=== PATIENT | female | born 1990 | race American Indian/Alaskan Native ===

== ENCOUNTER 2018-04-03 10:45 | Emergency (ER) | payer SELFPAY ==
[2018-04-03] MEDS ORDERED: TORADOL IM ONE (11:32)
[2018-04-03 11:35] LABS: Bacteria,Urine 1+ /HPF (Negative); Bilirubin,Urine NEG (Negative); Blood,Urine LG (Negative); Color,Urine Yellow (Yellow); Mucus,Urine 1+ /HPF; Protein,Urine <15 mg/dL mg/dL (Negative); Urobilinogen,Urine < 2.0 mg/dL (<2.0)
[2018-04-03 11:36] LABS: RBC,Urine > 182.0 /HPF (0.0-6.0)
[2018-04-03 11:38] VITALS: BP 106/72
[2018-04-03 11:39] LABS: HCG Qualitative,Urine Negative (Negative)
--- NOTE | 2018-04-03 11:42 | Emergency Department Report ---
ED Abdominal Pain HPI - General Chief Complaint: Abdominal Pain Stated Complaint: VAGINAL PAIN/LEG Time Seen by Provider: 04/03/18 11:27 Source: patient Mode of arrival: Ambulatory Limitations: No Limitations - History of Present Illness Initial Comments: This is a 27-year-old female nontoxic, well nourished in appearance, no acute signs of distress presents to the ED with c/o of right flank pain that radiates to right sided abdomen and radiating to right lower leg 1 day. Patient stated it feels the same as a kidney stone. Patient denies any nausea or vomiting. Patient denies chest pain, short of breath, fever, chills, headache, stiff neck , numbness or tingling. Patient denies any diarrhea or constipation. Patient denies any recent travels. Patient denies any allergies. MD Complaint: abdominal pain, flank pain -: Last night Location: R flank Radiation: RUQ, RLQ Migration to: no migration Severity: mild Severity scale (0 -10): 3 Quality: cramping, aching Consistency: constant Improves With: nothing Worsens With: nothing Associated Symptoms: denies other symptoms. denies: nausea, vomiting, diarrhea , fever, chills, constipation, dysuria, hematemesis, hematochezia, melena, hematuria, anorexia, syncope - Related Data Previous Rx's Medication Instructions Recorded Last Taken Type Ibuprofen [Motrin] 600 mg PO Q8H PRN #30 tablet 04/03/18 Unknown Rx Ondansetron [Zofran Odt] 4 mg PO Q8HR PRN #20 tab.rapdis 04/03/18 Unknown Rx Oxycodone HCl/Acetaminophen 1 each PO Q6HR PRN #12 tablet 04/03/18 Unknown Rx [Percocet 7.5/325 mg] Sulfamethoxazole/Trimethoprim 1 each PO BID #14 tablet 04/03/18 Unknown Rx [Bactrim DS TAB] Tamsulosin [Flomax] 0.4 mg PO QDAY #5 cap 04/03/18 Unknown Rx Allergies Allergy/AdvReac Type Severity Reaction Status Date / Time No Known Allergies Allergy Unverified 04/03/18 11:00 ED Review of Systems ROS: Stated complaint: VAGINAL PAIN/LEG Other details as noted in HPI Constitutional: denies: chills, fever Eyes: denies: eye pain, eye discharge, vision change ENT: denies: ear pain, throat pain Respiratory: denies: cough, shortness of breath, wheezing Cardiovascular: denies: chest pain, palpitations Endocrine: no symptoms reported Gastrointestinal: abdominal pain. denies: nausea, diarrhea Genitourinary: denies: urgency, dysuria, discharge Musculoskeletal: back pain, arthralgia. denies: joint swelling Skin: denies: rash, lesions Neurological: denies: headache, weakness, paresthesias Psychiatric: denies: anxiety, depression Hematological/Lymphatic: denies: easy bleeding, easy bruising ED Past Medical Hx - Past Medical History Previous Medical History?: Yes Hx Kidney Stones: Yes - Surgical History Past Surgical History?: No - Social History Smoking Status: Never Smoker Substance Use Type: None - Medications Home Medications: Home Medications Medication Instructions Recorded Confirmed Last Taken Type Ibuprofen [Motrin] 600 mg PO Q8H PRN #30 tablet 04/03/18 Unknown Rx Ondansetron [Zofran Odt] 4 mg PO Q8HR PRN #20 tab.rapdis 04/03/18 Unknown Rx Oxycodone HCl/Acetaminophen 1 each PO Q6HR PRN #12 tablet 04/03/18 Unknown Rx [Percocet 7.5/325 mg] Sulfamethoxazole/Trimethoprim 1 each PO BID #14 tablet 04/03/18 Unknown Rx [Bactrim DS TAB] Tamsulosin [Flomax] 0.4 mg PO QDAY #5 cap 04/03/18 Unknown Rx ED Physical Exam - General Limitations: No Limitations General appearance: alert, in no apparent distress - Head Head exam: Present: atraumatic, normocephalic - Eye Eye exam: Present: normal appearance - ENT ENT exam: Present: normal exam, mucous membranes moist - Neck Neck exam: Present: normal inspection, full ROM. Absent: tenderness, meningismus, lymphadenopathy - Respiratory Respiratory exam: Present: normal lung sounds bilaterally. Absent: respiratory distress, wheezes, rales, rhonchi, stridor, chest wall tenderness, accessory muscle use, decreased breath sounds, prolonged expiratory - Cardiovascular Cardiovascular Exam: Present: regular rate, normal rhythm, normal heart sounds. Absent: bradycardia, tachycardia, irregular rhythm, systolic murmur, diastolic murmur, rubs, gallop - GI/Abdominal GI/Abdominal exam: Present: soft, normal bowel sounds. Absent: distended, tenderness, guarding, rebound, rigid, diminished bowel sounds, hyperactive bowel sounds, hypoactive bowel sounds, mass, bruit, pulsatile mass, hernia - Expanded GI/Abdominal Exam Expanded GI/Abdominal exam: Absent: psoas sign, Dillard's sign, Rovsing's sign, tenderness at [place]'s [place], ascites - Rectal Rectal exam: Present: deferred - Extremities Exam Extremities exam: Present: normal inspection, full ROM - Back Exam Back exam: Present: normal inspection, full ROM, paraspinal tenderness (right sided paraspinal). Absent: tenderness, CVA tenderness (R), CVA tenderness (L), muscle spasm, vertebral tenderness, rash noted - Neurological Exam Neurological exam: Present: alert, oriented X3, normal gait - Psychiatric Psychiatric exam: Present: normal affect, normal mood - Skin Skin exam: Present: warm, dry, intact, normal color. Absent: rash ED Course Vital Signs 04/03/18 04/03/18 04/03/18 11:01 11:26 11:39 Temperature 98.0 F 98.5 F Pulse Rate 74 67 Respiratory 18 18 18 Rate Blood Pressure 122/84 Blood Pressure 106/72 [Left] O2 Sat by Pulse 100 100 Oximetry 04/03/18 13:59 Temperature Pulse Rate Respiratory 19 Rate Blood Pressure Blood Pressure [Left] O2 Sat by Pulse 99 Oximetry - Reevaluation(s) Reevaluation #1: 04/03/18 11:44 Patient is speaking in full sentences with no signs of distress noted. ED Medical Decision Making - Lab Data Result diagrams: 04/03/18 11:37 04/03/18 11:37 - Medical Decision Making This is a 27-year-old female that presents with right kidney stone. Patient is stable and was examined by me. There is slight abdominal tenderness. Negative signs of symptoms of appendicitis. Labs obtained. UA obtained. CT without contrast of abdomen obtained and dictated by the radiologist. Patient is notified of the report with no questions noted by the patient. Vital signs are stable prior to discharge. Patient received Toradol, Dilaudid, Tylenol with codeine and Tylenol No. 3 in the ED which patient stated symptoms has resolved and subsided. A by mouth challenge has been obtained and patient tolerated well with no nausea vomiting. Patient stated that her family member will drive the patient home after discharge due to possible drowsiness of medication that was given in the ER. Patient was notified of strict precautions of appendicitis symptoms and to return to the ED if symptoms occurs as soon as possible. Patient was also instructed to Follow-up with a primary care doctor in 3-5 days or if symptoms worsen and continue return to emergency room as soon as possible. At time of discharge, the patient does not seem toxic or ill in appearance. No acute signs of distress noted. Patient agrees to discharge treatment plan of care. No further questions noted by the patient. Critical care attestation.: If time is entered above; I have spent that time in minutes in the direct care of this critically ill patient, excluding procedure time. ED Disposition Clinical Impression: Right kidney stone Disposition: DC-01 TO HOME OR SELFCARE Is pt being admited?: No Does the pt Need Aspirin: No Condition: Stable Instructions: Oxycodone/Acetaminophen (By mouth), Kidney Stones (ED), Abdominal Pain (ED) Additional Instructions: Follow-up with a primary care doctor in 3-5 days or if symptoms worsen and continue return to emergency room as soon as possible. Do not operate any machinery while taking Percocet as this may cause drowsiness. Prescriptions: Ibuprofen [Motrin] 600 mg PO Q8H PRN #30 tablet PRN Reason: Pain Ondansetron [Zofran Odt] 4 mg PO Q8HR PRN #20 tab.rapdis PRN Reason: Nausea Oxycodone HCl/Acetaminophen [Percocet 7.5/325 mg] 1 each PO Q6HR PRN #12 tablet PRN Reason: Pain Sulfamethoxazole/Trimethoprim [Bactrim DS TAB] 1 each PO BID #14 tablet Tamsulosin [Flomax] 0.4 mg PO QDAY #5 cap Referrals: PRIMARY CAREMD [Primary Care Provider] - 3-5 Days VALERIE PRYOR MD [Staff Physician] - 3-5 Days [facility] [Outside] - 3-5 Days [facility] [Outside] - 3-5 Days Forms: Work/School Release Form(ED)
[2018-04-03 11:50] LABS: Basophils % (Auto) 0.4 % (0.0-1.8); Eosinophils # (Auto) 0.1 K/mm3 (0.0-0.4); Hematocrit 37.2 % (30.3-42.9); Hemoglobin 12.4 gm/dl (10.1-14.3); Lymphocytes # (Auto) 1.6 K/mm3 (1.2-5.4); Lymphocytes % (Auto) 27.9 % (13.4-35.0); Mean Corpuscular HGB Conc 33 % (30-34); Mean Corpuscular Hemoglobin 31 pg (28-32); Mean Corpuscular Volume 92 fl (79-97); Monocytes # (Auto) 0.7 K/mm3 (0.0-0.8); Monocytes % (Auto) 11.6 % (0.0-7.3); Platelet Count 249 K/mm3 (140-440); Red Blood Count 4.03 M/mm3 (3.65-5.03); Red Cell Distribution Width 13.9 % (13.2-15.2)
[2018-04-03 12:12] LABS: Alanine Aminotransferase 10 units/L (7-56); Albumin 4.1 g/dL (3.9-5); BUN/Creatinine Ratio 16; Blood Urea Nitrogen 8 mg/dL (7-17); Calcium 9.2 mg/dL (8.4-10.2); Hemolysis Index 7; Lipase 21 units/L (13-60)
[2018-04-03 12:14] LABS: Bilirubin,Direct < 0.2 mg/dL (0-0.2)
[2018-04-03] MEDS ORDERED: TYLENOL #3 PO ONE (13:25)
[2018-04-03] MEDS ORDERED: MORPHINE IM ONE (13:48)
[2018-04-03] MEDS ORDERED: DILAUDID IV ONE (13:52)
[2018-04-03] MEDS ORDERED: DILAUDID IM ONE ×2 (13:56→13:58)
--- NOTE | 2018-04-03 14:35 | Cat Scan Report ---
CT ABDOMEN PELVIS WITHOUT CONTRAST: HISTORY: Right flank pain. COMPARISON: none. TECHNIQUE: Helical CT in 1.25mm intervals without IV contrast. Sagittal and coronal reconstructions. FINDINGS: Lung bases: Normal. Liver: Normal. Biliary system: Normal. Pancreas: Normal. Spleen: Normal. Kidneys/ureters/bladder: There is mild right hydronephrosis. A 4 mm calculus is identified in the right side of the pelvis which is presumably within the distal right ureter. There also 2 stones in the right kidney measuring 3 mm and 5 mm. No left nephrolithiasis. The renal pyramids are slightly hyperdense bilaterally suggesting nephrocalcinosis. The bladder is unremarkable. Adrenal glands: Normal. Aorta: Normal. Intestines: Normal. Appendix: Normal. Pelvic viscera: Normal. Ascites: None. Adenopathy: None. Musculoskeletal: Normal. IMPRESSION: Right nephrolithiasis. 4 mm distal right ureteral stone, mildly obstructing.
== END 2018-04-03 15:12 | disposition home or self-care (01) ==
LOC: ED 10:45
DX: N20.0 Calculus of kidney (principal)
CPT/HCPCS: 36415; 74176; 80048; 80074; 81001; 81025; 83690; 85025; 96372; 99284; J1170; J1885

== ENCOUNTER 2018-10-19 11:13 | Outpatient (CLI) | payer MEDICAID ==
[2018-10-19 11:45] VITALS: BP 109/72
[2018-10-19] MEDS ORDERED: LACTATED RINGERS 1,000 ML IV ONE (12:00)
[2018-10-19 12:17] LABS: Bilirubin,Urine NEG (Negative); Blood,Urine NEG (Negative); Color,Urine Yellow (Yellow); Mucus,Urine FEW /HPF; Protein,Urine <15 mg/dL mg/dL (Negative); Urobilinogen,Urine < 2.0 mg/dL (<2.0)
== END 2018-10-19 12:35 | disposition home or self-care (01) ==
LOC: TRG 11:13
PROVIDERS: ATTEND Obstetrics & Gynecology
DX: O47.02 False labor before 37 completed weeks of gestation, second trimester (principal); Z3A.25 25 weeks gestation of pregnancy
CPT/HCPCS: 81001

== ENCOUNTER 2018-11-16 09:53 | Emergency (ER) | payer MEDICAID ==
[2018-11-16 10:00] VITALS: BP 119/80
[2018-11-16] MEDS ORDERED: XYLOCAINE 2% INFILTRATI ONE (10:23)
--- NOTE | 2018-11-16 10:28 | Emergency Department Report ---
- General Chief complaint: Extremity Problem,Nontraumatic Stated complaint: 30 WKS /SWOLLEN RT MIDDLE FINGER Time Seen by Provider: 11/16/18 10:19 Source: patient Mode of arrival: Ambulatory Limitations: No Limitations - History of Present Illness Initial comments: Patient is 28 years old female presented with abscess to the tip of the right middle finger for the last 3 days. 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 Patient denied any fever or chills. Patient is 30 weeks . complaint: abscess/boil -: days(s) Tetanus Up to Date: yes Location: R hand - Related Data Previous Rx's Medication Instructions Recorded Last Taken Type Ibuprofen [Motrin] 600 mg PO Q8H PRN #30 tablet 04/03/18 Unknown Rx Ondansetron [Zofran Odt] 4 mg PO Q8HR PRN #20 tab.rapdis 04/03/18 Unknown Rx Oxycodone HCl/Acetaminophen 1 each PO Q6HR PRN #12 tablet 04/03/18 Unknown Rx [Percocet 7.5/325 mg] Sulfamethoxazole/Trimethoprim 1 each PO BID #14 tablet 04/03/18 Unknown Rx [Bactrim DS TAB] Tamsulosin [Flomax] 0.4 mg PO QDAY #5 cap 04/03/18 Unknown Rx Allergies Allergy/AdvReac Type Severity Reaction Status Date / Time No Known Allergies Allergy Unverified 04/03/18 11:00 Abscess Boil HPI - HPI Chief Complaint: Extremity Problem,Nontraumatic Stated Complaint: 30 WKS /SWOLLEN RT MIDDLE FINGER Time Seen by Provider: 11/16/18 10:19 Home Medications: Previous Rx's Medication Instructions Recorded Last Taken Type Ibuprofen [Motrin] 600 mg PO Q8H PRN #30 tablet 04/03/18 Unknown Rx Ondansetron [Zofran Odt] 4 mg PO Q8HR PRN #20 tab.rapdis 04/03/18 Unknown Rx Oxycodone HCl/Acetaminophen 1 each PO Q6HR PRN #12 tablet 04/03/18 Unknown Rx [Percocet 7.5/325 mg] Sulfamethoxazole/Trimethoprim 1 each PO BID #14 tablet 04/03/18 Unknown Rx [Bactrim DS TAB] Tamsulosin [Flomax] 0.4 mg PO QDAY #5 cap 04/03/18 Unknown Rx Allergies/Adverse Reactions: Allergies Allergy/AdvReac Type Severity Reaction Status Date / Time No Known Allergies Allergy Unverified 04/03/18 11:00 ED Review of Systems ROS: Stated complaint: 30 WKS /SWOLLEN RT MIDDLE FINGER Other details as noted in HPI Comment: All other systems reviewed and negative Constitutional: denies: chills, fever Respiratory: denies: cough, orthopnea Gastrointestinal: denies: abdominal pain Musculoskeletal: denies: back pain ED Past Medical Hx - Past Medical History Previous Medical History?: Yes Hx Hypertension: No Hx Diabetes: No Hx Deep Vein Thrombosis: No Hx Renal Disease: (hx kidney stones) Hx Sickle Cell Disease: No Hx Seizures: No Hx Kidney Stones: Yes Hx Asthma: No Hx HIV: No - Surgical History Past Surgical History?: No - Social History Smoking Status: Never Smoker Substance Use Type: None - Medications Home Medications: Home Medications Medication Instructions Recorded Confirmed Last Taken Type Ibuprofen [Motrin] 600 mg PO Q8H PRN #30 tablet 04/03/18 Unknown Rx Ondansetron [Zofran Odt] 4 mg PO Q8HR PRN #20 tab.rapdis 04/03/18 Unknown Rx Oxycodone HCl/Acetaminophen 1 each PO Q6HR PRN #12 tablet 04/03/18 Unknown Rx [Percocet 7.5/325 mg] Sulfamethoxazole/Trimethoprim 1 each PO BID #14 tablet 04/03/18 Unknown Rx [Bactrim DS TAB] Tamsulosin [Flomax] 0.4 mg PO QDAY #5 cap 04/03/18 Unknown Rx ED Physical Exam - General Limitations: No Limitations General appearance: alert, in no apparent distress - Head Head exam: Present: atraumatic - ENT ENT exam: Present: normal exam, normal orophraynx - Respiratory Respiratory exam: Present: normal lung sounds bilaterally - Cardiovascular Cardiovascular Exam: Present: regular rate, normal heart sounds - GI/Abdominal GI/Abdominal exam: Present: soft, other (gravid). Absent: distended, tenderness - Extremities Exam Extremities exam: Present: other (abscess to the tip of the middle finger.) - Neurological Exam Neurological exam: Present: alert, oriented X3, CN II-XII intact - Skin Skin exam: Present: warm ED Course Vital Signs 11/16/18 09:59 Temperature 98.7 F Pulse Rate 100 H Respiratory 16 Rate Blood Pressure 119/80 O2 Sat by Pulse 99 Oximetry - I & D Right Finger Blade Size: 11 I & D Procedure: betadine prep, sterile drapes applied, sterile dressing applied Critical care attestation.: If time is entered above; I have spent that time in minutes in the direct care of this critically ill patient, excluding procedure time. ED Disposition Clinical Impression: Abscess of finger, right Disposition: DC-01 TO HOME OR SELFCARE Is pt being admited?: No Condition: Stable Instructions: Abscess Incision and Drainage (ED) Referrals: PRIMARY CARE, [Referring] - 3-5 Days
[2018-11-16] MEDS ORDERED: TYLENOL ONE (10:55)
[2018-11-16] MEDS ORDERED: TYLENOL PO ONE (10:59)
== END 2018-11-16 10:56 | disposition home or self-care (01) ==
LOC: ED 09:53
DX: O99.713 Diseases of the skin and subcutaneous tissue complicating pregnancy, third trimester (principal); L02.511 Cutaneous abscess of right hand; Z3A.30 30 weeks gestation of pregnancy
CPT/HCPCS: 99282

== ENCOUNTER 2019-02-02 13:11 | Inpatient (IN) | payer MEDICAID ==
--- NOTE | 2019-02-02 16:13 | Ultrasound Report ---
ULTRASOUND BIOPHYSICAL PROFILE ULTRASOUND OB LIMITED INDICATION: post dates TECHNIQUE: Transabdominal ultrasound imaging. COMPARISON: None FINDINGS: breathing movement = 2 Gross body movement = 2 tone = 0 Qualitative amniotic fluid volume = 2 Total biophysical score = 6/8 Amniotic fluid index is 9.4 cm. Presentation is cephalic. heart rate is 133 beats per minute. IMPRESSION: biophysical profile equals 6/8. Signer Name: Narendra Rascon Jr, MD Signed: 02/02/2019 4:09 PM Workstation Name: [id number]
[2019-02-02] MEDS ORDERED: ZOFRAN IV PRN (16:28)
[2019-02-02] MEDS ORDERED: BRETHINE SUB-Q PRN (16:28)
[2019-02-02] MEDS ORDERED: PHENERGAN PO PRN (16:28)
[2019-02-02] MEDS ORDERED: MINERAL OIL PO PRN (16:28)
[2019-02-02] MEDS ORDERED: BRETHINE IVP PRN (16:28)
[2019-02-02] MEDS ORDERED: SUBLIMAZE IV PRN (16:28)
[2019-02-02] MEDS ORDERED: XYLOCAINE 2% INFILTRATI ONE (16:28)
--- NOTE | 2019-02-02 16:28 | History and Physical Report ---
History of Present Illness Date of examination: 02/02/19 Chief complaint: Irregular contractions History of present illness: Pt is a 28yo BF EDC 02/01/19; EGA 40 1/7 weeks presented to L&D for BPP 6/10 and DEMI 9.4 She received late care at [facility] since 31 weeks and course has been unremarkable. records are available and GBS is Negative. Past History Past Medical History: no pertinent history Past Surgical History: no surgical history Social history: no significant social history, single - Obstetrical History Expected Date of Delivery: 02/01/19 Actual Gestation: 40 Week(s) 2 Day(s) : 2 Medications and Allergies Allergies Allergy/AdvReac Type Severity Reaction Status Date / Time No Known Allergies Allergy Verified 02/02/19 13:33 Home Medications Medication Instructions Recorded Confirmed Last Taken Type Ibuprofen [Motrin] 600 mg PO Q8H PRN #30 tablet 04/03/18 Unknown Rx Ondansetron [Zofran Odt] 4 mg PO Q8HR PRN #20 tab.rapdis 04/03/18 Unknown Rx Oxycodone HCl/Acetaminophen 1 each PO Q6HR PRN #12 tablet 04/03/18 Unknown Rx [Percocet 7.5/325 mg] Sulfamethoxazole/Trimethoprim 1 each PO BID #14 tablet 04/03/18 Unknown Rx [Bactrim DS TAB] Tamsulosin [Flomax] 0.4 mg PO QDAY #5 cap 04/03/18 Unknown Rx Acetaminophen/Codeine [Tylenol 1 tab PO Q6H PRN #14 tab 11/16/18 Unknown Rx /Codeine # 3 tab] cephALEXin [Keflex] 500 mg PO Q8HR #28 cap 11/16/18 Unknown Rx Review of Systems All systems: negative - Vital Signs Vital signs: Vital Signs Temp Pulse Resp BP 97.7 F 90 20 117/84 02/02/19 13:55 02/02/19 13:55 02/02/19 13:55 02/02/19 13:55 Temp Pulse Resp BP Pulse Ox 97.7 F 82 20 115/83 02/02/19 13:55 02/02/19 15:49 02/02/19 13:55 02/02/19 15:49 - Physical Exam Breasts: Positive: deferred Cardiovascular: Regular rate Lungs: Positive: Clear to auscultation Abdomen: Positive: normal appearance Genitourinary (Female): Positive: normal external genitalia Uterus: Positive: enlarged Extremities: Positive: normal - Obstetrical FHR: category 1 Uterine Contraction Monitor Mode: External Cervical Dilatation: 2 Cervical Effacement Percentage: 60 station: -2 Uterine Contraction Pattern: Irregular Uterine Tone Measurement Phase: Contraction Uterine Contraction Intensity: Mild Results Result Diagrams: 02/02/19 17:02 All other labs normal. Ultrasound: report reviewed (BPP 6/8; DEMI 9.4) Assessment and Plan - Patient Problems (1) 40 weeks gestation of Onset Date: 02/02/19 Current Visit: Yes Status: Acute Plan to address problem: A: IUP @ 40 1/7 weeks BPP 6/8 GBS Negative P: Admit to L&D for pitocin induction of labor
[2019-02-02] MEDS ORDERED: PITOCin/NS 20 UNIT/1000ML DRIP 20 UNITS/1,000 ML BAG IV SCH (17:00)
[2019-02-02] MEDS ORDERED: PITOCin/NS 30 UNIT/500ML 30 UNITS/500 ML BAG IV SCH ×2 (17:00)
[2019-02-02] MEDS ORDERED: LACTATED RINGERS 1,000 ML IV SCH (17:00)
[2019-02-02 17:29] LABS: Hematocrit 39.8 % (30.3-42.9); Hemoglobin 13.4 gm/dl (10.1-14.3); Mean Corpuscular HGB Conc 34 % (30-34); Mean Corpuscular Volume 90 fl (79-97); Platelet Count 203 K/mm3 (140-440); Red Blood Count 4.42 M/mm3 (3.65-5.03); Red Cell Distribution Width 13.6 % (13.2-15.2)
[2019-02-03] MEDS: STADOL IV PRN ×3 (00:55→07:40)
--- NOTE | 2019-02-03 08:46 | Progress Note ---
Assessment and Plan - Patient Problems (1) 40 weeks gestation of Onset Date: 02/02/19 Current Visit: Yes Status: Acute Plan to address problem: A: IUP @ 40 2/7 weeks BPP 6/8 GBS Negative P: Continue with pitocin induction of labor May have epidural Expectant vaginal delivery. Subjective - Subjective Date of service: 02/03/19 Principal diagnosis: IUP @ 40 2/7 weeks Interval history: Pt is a 28yo BF EDC 02/01/19; EGA 40 2/7 weeks presented to L&D for BPP 6/10 and DEMI 9.4 She received late care at [facility] since 31 weeks and course has been unremarkable. She received pitocin and currently on 20mu/min and [place] q 2-4 mins. Patient reports: movement normal, contractions, no new complaints, no loss of fluid, no vaginal bleeding Objective - Vital Signs Vital Signs: Vital Signs - 12hr 02/02/19 02/02/19 02/02/19 21:34 22:34 23:36 Temperature Pulse Rate 86 74 68 Respiratory Rate Blood Pressure 132/89 130/83 125/78 02/03/19 02/03/19 02/03/19 00:35 01:35 02:36 Temperature Pulse Rate 82 70 63 Respiratory Rate Blood Pressure 119/86 121/61 125/67 02/03/19 02/03/19 02/03/19 03:26 03:42 04:35 Temperature 97.8 F Pulse Rate 71 66 Respiratory 16 Rate Blood Pressure 120/80 102/69 02/03/19 02/03/19 02/03/19 05:34 06:34 07:44 Temperature Pulse Rate 76 73 81 Respiratory Rate Blood Pressure 119/73 107/66 141/95 02/03/19 02/03/19 07:50 08:35 Temperature 97.5 F L Pulse Rate 68 Respiratory Rate Blood Pressure 141/81 - Exam Abdomen: Present: normal appearance, soft Uterus: Present: normal FHR: category 1 Uterine Contraction Monitor Mode: External Cervical Dilatation: 4 Cervical Effacement Percentage: 100 station: -1 Uterine Contraction Pattern: Regular Uterine Tone Measurement Phase: Contraction Uterine Contraction Intensity: Strong/Firm - Labs Labs: Laboratory Results - last 24 hr 02/02/19 02/02/19 17:02 Unknown WBC 8.3 RBC 4.42 Hgb 13.4 Hct 39.8 MCV 90 MCH 30 MCHC 34 RDW 13.6 Plt Count 203 Blood Type A POSITIVE Antibody Screen Negative
--- NOTE | 2019-02-03 10:38 | Procedure Note ---
OB Delivery Note - Delivery Date of Delivery: 02/03/19 Surgeon: JERARDO GILMAN Estimated blood loss: 200cc - Vaginal Delivery presentation: vertex Delivery position: OA Intrapartum events: none Delivery induction: oxytocin Delivery augmentation: rupture of membranes, pitocin Delivery monitor: external FHT, external uterine Route of delivery: Delivery placenta: spontaneous Delivery cord: 3 umbilical vessels Episiotomy: none Delivery laceration: none Anesthesia: intravenous Delivery comments: delivered OA and placed on Mom's chest for [id number] bonding and delayed cord clamping. - A at 1 minute: 8 at 5 minutes: 9 Infant Gender: Male ([id number])
[2019-02-03] MEDS ORDERED: DULCOLAX PR PRN (10:39)
[2019-02-03] MEDS ORDERED: LANSINOH TP PRN (10:39)
[2019-02-03] MEDS ORDERED: ZOFRAN IV PRN (10:39)
[2019-02-03] MEDS ORDERED: MILK OF MAGNESIA PO PRN (10:39)
[2019-02-03] MEDS ORDERED: TYLENOL PO PRN (10:39)
[2019-02-03] MEDS ORDERED: PHENERGAN PR PRN (10:39)
[2019-02-03] MEDS ORDERED: PHENERGAN PO PRN (10:39)
[2019-02-03] MEDS ORDERED: BENADRYL PO PRN (10:39)
[2019-02-03] MEDS ORDERED: TUCKS PAD TP PRN (10:39)
[2019-02-03] MEDS ORDERED: PITOCin/NS 20 UNIT/1000ML DRIP 20 UNITS/1,000 ML BAG IV SCH (11:00)
[2019-02-03] MEDS ORDERED: SODIUM CHLORIDE FLUSH SYRINGE 10 ML IV NR (11:00)
[2019-02-03] MEDS: NORCO 5/325 PO PRN ×2 (12:09→21:19)
[2019-02-03] MEDS: IBUPROFEN PO SCH ×2 (12:11→18:18)
[2019-02-03] MEDS: COLACE PO SCH (21:19)
[2019-02-03] MEDS: FEOSOL PO SCH (21:19)
[2019-02-03 21:34] LABS: Hematocrit 33.3 % (30.3-42.9); Hemoglobin 11.1 gm/dl (10.1-14.3)
[2019-02-04] MEDS: IBUPROFEN PO SCH ×5 (00:37→22:26)
[2019-02-04] MEDS: NORCO 5/325 PO PRN ×3 (05:55→20:30)
--- NOTE | 2019-02-04 09:04 | Progress Note ---
Assessment and Plan - Patient Problems (1) 40 weeks gestation of Onset Date: 02/02/19 Current Visit: Yes Status: Resolved (2) (normal spontaneous vaginal delivery) Onset Date: 02/04/19 Current Visit: Yes Status: Resolved Plan to address problem: A: S/P - PPD #1 Doing well Asymptomatic anemia - stable P: May go home tomorrow. Subjective - Subjective Date of service: 02/04/19 Principal diagnosis: s/p - PPD #1 Interval history: Pt is feeling well without complaints. Bleeding improved. Patient reports: appetite normal, voiding normally, pain well controlled, flatus, ambulating normally, no dizzy ambulation, no nauseated [place]: doing well, nursing well, bottle feeding Objective - Vital Signs Latest vital signs: Vital Signs Temp Pulse Resp BP BP Pulse Ox 02/03/19 23:54 98.6 F 87 20 126/87 99 02/03/19 19:28 98.2 F 86 20 135/85 99 02/03/19 16:26 98.2 F 86 18 116/80 02/03/19 13:00 98.2 F 72 20 121/71 02/03/19 12:34 86 128/75 02/03/19 12:00 75 152/83 02/03/19 11:46 74 120/78 02/03/19 10:42 80 133/66 Intake and Output 02/03/19 02/04/19 02/04/19 22:59 06:59 14:59 Intake Total 480 360 Output Total 1400 Balance -920 360 Intake: Oral 480 360 Output: Urine 1400 Void 1400 Other: Total, Intake Amount 480 120 Total, Output Amount 400 # Voids Void 1 1 - Exam Breasts: Present: deferred Abdomen: Present: normal appearance, soft Uterus: Present: normal, firm, fundal height below umbilicus Extremities: Present: normal - Labs Labs: Laboratory Tests 02/02/19 02/02/19 02/02/19 17:02 17:02 Unknown WBC 8.3 RBC 4.42 Hgb 13.4 Hct 39.8 MCV 90 MCH 30 MCHC 34 RDW 13.6 Plt Count 203 RPR Nonreactive Blood Type A POSITIVE Antibody Screen Negative 02/03/19 21:08 WBC RBC Hgb 11.1 Hct 33.3 D MCV MCH MCHC RDW Plt Count RPR Blood Type Antibody Screen
[2019-02-04] MEDS: FEOSOL PO SCH ×2 (10:26→21:38)
[2019-02-04] MEDS: COLACE PO SCH ×2 (10:26→21:38)
[2019-02-04] MEDS: PRENATAL VITAMIN PO SCH (10:26)
[2019-02-04] MEDS ORDERED: M-M-R II VACCINE SUB-Q ONE (10:39)
[2019-02-04] MEDS ORDERED: BOOSTRIX IM ONE (10:39)
[2019-02-05] MEDS: NORCO 5/325 PO PRN ×2 (02:55→10:44)
[2019-02-05] MEDS: IBUPROFEN PO SCH (04:55)
--- NOTE | 2019-02-05 08:56 | Discharge Summary ---
Providers - Providers Date of Admission: 02/02/19 16:40 Date of discharge: 02/05/19 Attending physician: JERARDO GILMAN [facility] Hospitalization Reason for admission: induction of labor, IUP at term Delivery: Episiotomy: none Laceration: none Other procedures: none complications: none Discharge diagnosis: IUP at term delivered [place] baby: male Hospital course: Unremarkable. Condition at discharge: Good Disposition: DC-01 TO HOME OR SELFCARE - Discharge Diagnoses (1) 40 weeks gestation of Status: Resolved (2) (normal spontaneous vaginal delivery) Status: Resolved Plan - Discharge Medications Prescriptions: Ferrous Sulfate [Feosol 325 MG tab] 325 mg PO QDAY #30 tablet Ibuprofen [Motrin 600 MG tab] 600 mg PO Q6H #30 tablet Vit-Fe Fumar-FA [ Vitamin] 1 each PO QDAY #30 tablet - Provider Discharge Summary Activity: routine, no sex for 6 weeks, no heavy lifting 4 weeks, no strenuous exercise Diet: routine Instructions: routine Additional instructions: [] Smoking cessation referral if applicable(refer to patient education folder for contact #) [] Refer to [facility]'s [facility] Booklet Call your doctor immediately for: * Fever > 100.5 * Heavy vaginal bleeding ( >1 pad per hour) * Severe persistent headache * Shortness of breath * Reddened, hot, painful area to leg or breast * Drainage or odor from incision. * Keep incision clean and dry at all times and follow doctor's instructions regarding bathing/showering - Follow up plan Follow up: GREGORY TRISTAN MD [Primary Care Provider] - 6 Weeks JERARDO GILMAN MD [Staff Physician] - 6 Weeks
[2019-02-05] MEDS: COLACE PO SCH (10:43)
[2019-02-05] MEDS: PRENATAL VITAMIN PO SCH (10:43)
[2019-02-05] MEDS: FEOSOL PO SCH (10:43)
[2019-02-05 15:20] VITALS: BP 123/81
== END 2019-02-05 16:10 | disposition home or self-care (01) | DRG 775 ==
LOC: TRG 13:11 → LD 16:40 → OB 02-03 12:53
PROVIDERS: ADMIT Obstetrics & Gynecology; ATTEND Obstetrics & Gynecology
PROC: 3E033VJ Introduction of Other Hormone into Peripheral Vein, Percutaneous Approach (ICD-10-PCS; 2019-02-02)
PROC: 10E0XZZ Delivery of Products of Conception, External Approach (ICD-10-PCS; principal; 2019-02-03)
PROC: 3E0234Z Introduction of Serum, Toxoid and Vaccine into Muscle, Percutaneous Approach (ICD-10-PCS; 2019-02-04)
DX: O90.81 Anemia of the puerperium (principal); Z3A.40 40 weeks gestation of pregnancy; Z37.0 Single live birth; Z23 Encounter for immunization
CPT/HCPCS: 36415; 76815; 76819; 85014; 85018; 85027; 86592; 86850; 86900; 86901; G0378; J0595; J2590; J3010; J7120

== ENCOUNTER 2020-11-25 14:57 | Emergency (ER) | payer SELFPAY ==
[2020-11-25 16:32] VITALS: BP 129/82
--- NOTE | 2020-11-25 16:45 | Event Note ---
ED Screening Note Date of service: 11/25/20 Time: 16:44 ED Screening Note: Patient complains of lower abdominal pain and hematochezia today States has not had a cycle in 3 months Denies urinary symptoms This initial assessment/diagnostic orders/clinical plan/treatment(s) is/are subject to change based on patients health status, clinical progression and re- assessment by fellow clinical providers in the ED. Further treatment and workup at subsequent clinical providers discretion. Patient/guardian urged not to elope from the ED as their condition may be serious if not clinically assessed and managed. Initial orders include: Labs
[2020-11-25 17:09] LABS: Basophils % (Auto) 0.5 % (0.0-1.8); Eosinophils # (Auto) 0.4 K/mm3 (0.0-0.4); Eosinophils % (Auto) 4.6 % (0.0-4.3); Hematocrit 34.1 % (30.3-42.9); Hemoglobin 11.8 gm/dl (10.1-14.3); Lymphocytes # (Auto) 1.7 K/mm3 (1.2-5.4); Lymphocytes % (Auto) 19.7 % (13.4-35.0); Mean Corpuscular HGB Conc 35 % (30-34); Mean Corpuscular Volume 93 fl (79-97); Monocytes # (Auto) 0.6 K/mm3 (0.0-0.8); Monocytes % (Auto) 7.2 % (0.0-7.3); Platelet Count 243 K/mm3 (140-440); Red Blood Count 3.68 M/mm3 (3.65-5.03); Red Cell Distribution Width 13.7 % (13.2-15.2)
[2020-11-25 17:33] LABS: Alanine Aminotransferase 12 units/L (7-56); Albumin 3.8 g/dL (3.9-5); Blood Urea Nitrogen 7 mg/dL (7-17); Calcium 9.1 mg/dL (8.4-10.2); Hemolysis Index 1
[2020-11-25 17:39] LABS: BUN/Creatinine Ratio 18
[2020-11-25] MEDS ORDERED: ACETAMINOPHEN 500 MG TAB PO ONE (19:35)
[2020-11-25 20:54] LABS: Bacteria,Urine 2+ /HPF (Negative); Bilirubin,Urine NEG (Negative); Blood,Urine NEG (Negative); Color,Urine Yellow (Yellow); Mucus,Urine 3+ /HPF; Protein,Urine <15 mg/dL mg/dL (Negative); Urobilinogen,Urine < 2.0 mg/dL (<2.0)
--- NOTE | 2020-11-25 22:08 | Ultrasound Report ---
ULTRASOUND OBSTETRIC INDICATION / CLINICAL INFORMATION: Lower abdominal pain. Clinical Gestational Age (GA): 13 weeks 4 days TECHNIQUE: Transabdominal. COMPARISON: None available. FINDINGS: There is a single intrauterine . Biparietal Diameter = 4.1 cm = 18 weeks, 3 day(s). Head Circumference = 15.6 cm = 18 weeks, 3 day(s). Abdominal Circumference = 12.8 cm = 18 weeks, 2 day(s). Femur Length = 2.8 cm = 18 weeks, 2 day(s). Average Ultrasound Age (AUA) = 18 weeks, 3 day(s). Heart Rate: 150 beats per minute. Estimated Weight in grams (if calculated): 239 Estimated Weight Growth Percentile (if calculated): Position: transverse head maternal left Cervix: closed. Length in cm (if measured): 4.2 Placenta: posterior, grade 1 and free of the os. Amniotic Fluid Volume: normal Amniotic Fluid Index (DEMI) in cm (if calculated): . Maternal Adnexa: No significant abnormality. IMPRESSION: 1. Single, living intrauterine with estimated sonographic age of 18 weeks, 3 day(s). 2. No significant sonographic abnormality. Signer Name: Fabrizio Roger MD Signed: 11/25/2020 10:04 PM Workstation Name: [id number]
== END 2020-11-25 22:00 | disposition home or self-care (01) ==
LOC: ED 14:57
DX: R10.9 Unspecified abdominal pain (principal)
CPT/HCPCS: 36415; 76805; 80053; 81001; 83690; 84702; 85025

== ENCOUNTER 2021-03-27 12:27 | Outpatient (CLI) | payer MEDICAID ==
[2021-03-27 13:25] VITALS: BP 111/77
[2021-03-27] MEDS ORDERED: LACTATED RINGERS 500 ML IV ONE (13:44)
[2021-03-27 14:34] LABS: Bacteria,Urine 1+ /HPF (Negative); Bilirubin,Urine NEG (Negative); Blood,Urine NEG (Negative); Color,Urine Amber (Yellow); Mucus,Urine 1+ /HPF
== END 2021-03-27 14:35 | disposition home or self-care (01) ==
LOC: TRG 12:27 → APU 12:44 → TRG 14:35
PROVIDERS: ATTEND Obstetrics & Gynecology
DX: Z34.93 Encounter for supervision of normal pregnancy, unspecified, third trimester (principal); Z3A.36 36 weeks gestation of pregnancy
CPT/HCPCS: 59025; 81001; 87076; 87086; 87186

== ENCOUNTER 2021-03-27 14:45 | Emergency (ER) | payer MEDICAID ==
--- NOTE | 2021-03-27 15:50 | Event Note ---
ED Screening Note Date of service: 03/27/21 Time: 15:47 ED Screening Note: 30-year-old -[place] female who presents to the emergency room at 36 weeks and 1 day for having shortness of breath and chest tingling and difficulty breathing x2 days. Patient states that she tested positive for Covid 7 or 8 days ago. Patient admits that she is unvaccinated. Patient is 3 para 2 and is followed by [facility]. Patient admits to diarrhea and no appetite and no lower leg swelling. Patient denies any past medical history and no complications with either pregnancies. Patient has stable vital signs for blood pressure 126/82 heart rate 106 pulse ox 97% on room air and temp of 98.4. Patient is coughing during examination. Lungs are clear. No abdominal tenderness no lower leg swelling. This initial assessment/diagnostic orders/clinical plan/treatment(s) is/are subject to change based on patients health status, clinical progression and re- assessment by fellow clinical providers in the ED. Further treatment and workup at subsequent clinical providers discretion. Patient/guardian urged not to elope from the ED as their condition may be serious if not clinically assessed and managed. Initial orders include: CBC CMP EKG PT PTT and ambulatory pulse ox has been ordered.
[2021-03-27] MEDS ORDERED: ACETAMINOPHEN 325 MG TAB PO STA (16:38)
--- NOTE | 2021-03-27 16:39 | Emergency Department Report ---
ED General Adult HPI - General Chief complaint: Dyspnea/Respdistress Stated complaint: CP/SOB PUI?: Yes Time Seen by Provider: 03/27/21 15:39 Source: patient, old records reviewed Mode of arrival: Ambulatory Limitations: No Limitations - History of Present Illness Initial comments: The patient was evaluated in the emergency department for symptoms described in the history of present illness. He/she was evaluated in the context of the global COVID-19 pandemic, which necessitated consideration that the patient might be at risk for infection with the virus that causes COVID-19. Institutional protocols and algorithms that pertain to the evaluation of patients at risk for COVID-19 are in a state of rapid change based on inf ormation released by regulatory bodies including the CDC and federal and state organizations. These policies and algorithms were followed during the patient's care in the emergency department. Please note that these policies, procedures and recommendations changed on a rapid basis. During the entire history and physical examination, I had on complete personal protective equipment. The patient is a 30-year-old female. She is positive for COVID-19 for approximately 1 week. She is also approximately 36 weeks , and 3, para 2. She was sent to the emergency room by labor and delivery for medical clearance. The patient complains of approximately 1 week of chest tightness, cough, shortness of breath. She has loss of taste and smell. She has headache. She reports that she went to labor and delivery because of abdominal cramping. She states that she was cleared from an obstetric standpoint by labor and delivery. She denies dysuria. She denies hematemesis and bright red blood per rectum. She denies leg pain or leg swelling. Her symptoms were somewhat improved with acetaminophen in the emergency room. She currently does not smoke tobacco or cigarettes. She denies a personal/family history of DVT, PE and coronary artery disease. The patient reports that she has not received COVID-19 vaccination -: Gradual, days(s) Location: chest Radiation: non-radiation Consistency: intermittent Improves with: rest Worsens with: movement - Related Data Previous Rx's Medication Instructions Recorded Last Taken Type Ibuprofen [Motrin] 600 mg PO Q8H PRN #30 tablet 04/03/18 Unknown Rx Ondansetron [Zofran Odt] 4 mg PO Q8HR PRN #20 tab.rapdis 04/03/18 Unknown Rx Oxycodone HCl/Acetaminophen 1 each PO Q6HR PRN #12 tablet 04/03/18 Unknown Rx [Percocet 7.5/325 mg] Sulfamethoxazole/Trimethoprim 1 each PO BID #14 tablet 04/03/18 Unknown Rx [Bactrim DS TAB] Tamsulosin [Flomax] 0.4 mg PO QDAY #5 cap 04/03/18 Unknown Rx Acetaminophen/Codeine [Tylenol 1 tab PO Q6H PRN #14 tab 11/16/18 Unknown Rx /Codeine # 3 tab] cephALEXin [Keflex] 500 mg PO Q8HR #28 cap 11/16/18 Unknown Rx Ferrous Sulfate [Feosol 325 MG tab] 325 mg PO QDAY #30 tablet 02/05/19 Unknown Rx Ibuprofen [Motrin 600 MG tab] 600 mg PO Q6H #30 tablet 02/05/19 Unknown Rx Vit-Fe Fumar-FA [ 1 each PO QDAY #30 tablet 02/05/19 Unknown Rx Vitamin] Albuterol Sulfate [Proair 90 mcg IH 4XD #1 aer.pow.ba 03/27/21 Unknown Rx Respiclick] Allergies Allergy/AdvReac Type Severity Reaction Status Date / Time No Known Allergies Allergy Verified 02/02/19 13:33 ED Review of Systems ROS: Stated complaint: CP/SOB Other details as noted in HPI Constitutional: malaise, weakness. denies: fever Eyes: denies: eye discharge ENT: denies: epistaxis Respiratory: cough, shortness of breath Cardiovascular: chest pain Gastrointestinal: denies: nausea, vomiting, diarrhea, hematemesis, melena, hematochezia Genitourinary: denies: dysuria Musculoskeletal: myalgia Neurological: headache, weakness Hematological/Lymphatic: denies: easy bleeding ED Past Medical Hx - Past Medical History Hx Hypertension: No Hx Diabetes: No Hx Deep Vein Thrombosis: No Hx Renal Disease: No Hx Sickle Cell Disease: No Hx Seizures: No Hx Kidney Stones: Yes Hx Asthma: No Hx HIV: No - Social History Smoking Status: Never Smoker Substance Use Type: None - Medications Home Medications: Home Medications Medication Instructions Recorded Confirmed Last Taken Type Ibuprofen [Motrin] 600 mg PO Q8H PRN #30 tablet 04/03/18 02/04/19 Unknown Rx Ondansetron [Zofran Odt] 4 mg PO Q8HR PRN #20 tab.rapdis 04/03/18 02/04/19 Unknown Rx Oxycodone HCl/Acetaminophen 1 each PO Q6HR PRN #12 tablet 04/03/18 02/04/19 Unknown Rx [Percocet 7.5/325 mg] Sulfamethoxazole/Trimethoprim 1 each PO BID #14 tablet 04/03/18 02/04/19 Unknown Rx [Bactrim DS TAB] Tamsulosin [Flomax] 0.4 mg PO QDAY #5 cap 04/03/18 02/04/19 Unknown Rx Acetaminophen/Codeine [Tylenol 1 tab PO Q6H PRN #14 tab 11/16/18 02/04/19 Unknown Rx /Codeine # 3 tab] cephALEXin [Keflex] 500 mg PO Q8HR #28 cap 11/16/18 Unknown Rx Ferrous Sulfate [Feosol 325 MG tab] 325 mg PO QDAY #30 tablet 02/05/19 Unknown Rx Ibuprofen [Motrin 600 MG tab] 600 mg PO Q6H #30 tablet 02/05/19 Unknown Rx Vit-Fe Fumar-FA [ 1 each PO QDAY #30 tablet 02/05/19 Unknown Rx Vitamin] Albuterol Sulfate [Proair 90 mcg IH 4XD #1 aer.pow.ba 03/27/21 Unknown Rx Respiclick] ED Physical Exam - General Limitations: No Limitations General appearance: alert, in no apparent distress - Head Head exam: Present: atraumatic, normocephalic - Eye Eye exam: Present: normal appearance, EOMI. Absent: nystagmus - ENT ENT exam: Present: normal exam, normal orophraynx, mucous membranes moist, nor mal external ear exam - Neck Neck exam: Present: normal inspection, full ROM. Absent: tenderness, meningismus - Respiratory Respiratory exam: Present: other (Pulmonary auscultation not performed secondary to lack of disposable stethoscope). Absent: respiratory distress, stridor - Cardiovascular Cardiovascular Exam: Present: regular rate (Seen on EKG), normal rhythm, other (Cardiac auscultation not performed secondary to lack of disposable stethoscope) - GI/Abdominal GI/Abdominal exam: Present: soft, other (Uterus is consistent with dates. Abdomen soft and benign, and nontender). Absent: distended, tenderness, rebound, rigid, pulsatile mass - Extremities Exam Extremities exam: Present: normal inspection, full ROM, other (2+ pulses noted in the bilateral upper and lower extremities. There is no palpable cord. negative Homans sign. Muscular compartments are soft. The pelvis is stable.). Absent: pedal edema, calf tenderness - Back Exam Back exam: Present: normal inspection. Absent: full ROM, tenderness, CVA tenderness (R), CVA tenderness (L), paraspinal tenderness, vertebral tenderness - Neurological Exam Neurological exam: Present: alert, oriented X3, normal gait, other (No facial droop. Tongue midline. Extraocular movements intact bilaterally. Facial sensation intact to light touch in V1, V2, V3 distribution bilaterally. 5 and a 5 strength in 4 extremities. Sensation intact to light touch in 4 extremities.). Absent: motor sensory deficit - Psychiatric Psychiatric exam: Present: normal affect, normal mood - Skin Skin exam: Present: warm, dry, intact, normal color. Absent: rash ED Course Vital Signs 03/27/21 03/27/21 03/27/21 15:26 15:46 15:54 Temperature 98.4 F 98.4 F Pulse Rate 99 H 106 H Respiratory 22 16 Rate Blood Pressure 126/82 O2 Sat by Pulse 97 97 97 Oximetry 03/27/21 03/27/21 19:33 23:40 Temperature 98.2 F Pulse Rate 101 H 97 H Respiratory 13 17 Rate Blood Pressure 110/78 O2 Sat by Pulse 99 98 Oximetry - Reevaluation(s) Reevaluation #1: 03/27/21 19:29 Differential diagnosis, including but not limited to: COVID-19, pulmonary embolism, pneumonia, coronary artery disease Assessment and plan: 30-year-old female who is Covid positive for 1 week, and also approximately 36 weeks , Presenting with a few days of chest tightness, shortness of breath. This is most likely secondary to COVID-19. At the moment, she is saturating well on room air. Heart score is less than 4, troponin negative x1, EKG not consistent with STEMI. As per the [employer] clinical policy, acute myocardial infarction may be ruled out with 1 set of troponin/cardiac enzymes if symptoms present for greater than 8 hours. COVID-19 [address] patient at risk for pulmonary embolism. D- dimer sent and elevated, and therefore, CT scan of the chest will be obtained. Extensive discussion had with patient regarding risks, benefits and alternatives of objective radiographic imaging. Patient has signed informed consent for definitive CT angiographic imaging to rule her out/rule in for pulmonary embolism. From an obstetric standpoint, she was cleared earlier on today by TELEVISION INSPECTOR as per her report. Her abdomen is soft and benign, without rebound, guarding or peritoneal signs. CO2 is likely secondary to physiology of , as well as probable physiologic tachypnea, likely secondary to underlying COVID-19. Repeat vital signs pending, final disposition as per CT scan of the chest. care will be transferred to the oncoming ER physician to follow up on cta chest, repeat vital signs and arrange for final disposition Patient was able to ambulate on a portable pulse oximeter on room air for 5 minutes without desaturation. Given that she does not have hypoxia with ambulation, she does not require admission for supplemental oxygen, steroids, or supportive Covid care. During multiple repeat evaluations, the patient is noted to be resting comfortably on chair, engaged/playing with her cellular phone. 03/27/21 19:29 03/27/21 19:32 ED Medical Decision Making - Lab Data Result diagrams: 03/27/21 16:32 03/27/21 16:32 Vital Signs 03/27/21 03/27/21 15:46 15:54 Temperature 98.4 F Pulse Rate 106 H Respiratory 16 Rate O2 Sat by Pulse 97 97 Oximetry Lab Results 03/27/21 03/27/21 03/27/21 Range/Units 16:32 16:32 16:32 WBC 5.1 (4.5-11.0) K/mm3 RBC 4.18 (3.65-5.03) M/mm3 Hgb 12.3 (10.1-14.3) gm/dl Hct 36.8 (30.3-42.9) % MCV 88 (79-97) fl MCH 30 (28-32) pg MCHC 34 (30-34) % RDW 13.7 (13.2-15.2) % Plt Count 192 (140-440) K/mm3 Lymph % (Auto) 24.1 (13.4-35.0) % [place] % (Auto) 8.9 H (0.0-7.3) % Eos % (Auto) 0.0 (0.0-4.3) % Baso % (Auto) 0.3 (0.0-1.8) % Lymph # (Auto) 1.2 (1.2-5.4) K/mm3 [place] # (Auto) 0.5 (0.0-0.8) K/mm3 Eos # (Auto) 0.0 (0.0-0.4) K/mm3 Baso # (Auto) 0.0 (0.0-0.1) K/mm3 Seg Neutrophils % 66.7 (40.0-70.0) % Seg Neutrophils # 3.4 (1.8-7.7) K/mm3 PT 12.2 (12.2-14.9) Sec. INR 0.86 L (0.87-1.13) APTT 33.5 (24.2-36.6) Sec. D-Dimer 676.26 H (0-234) ng/mlDDU Sodium 139 (137-145) mmol/L Potassium 4.0 (3.6-5.0) mmol/L Chloride 107.8 H (98-107) mmol/L Carbon Dioxide 15 L (22-30) mmol/L Anion Gap 20 mmol/L BUN 6 L (7-17) mg/dL Creatinine 0.5 L (0.6-1.2) mg/dL Estimated GFR > 60 ml/min BUN/Creatinine Ratio 12 % Glucose 74 (65-100) mg/dL Calcium 8.6 (8.4-10.2) mg/dL Troponin T < 0.010 (0.00-0.029) ng/mL - EKG Data -: EKG Interpreted by Dc EKG shows normal: sinus rhythm Rate: normal - EKG Data When compared to previous EKG there are: previous EKG unavailable 03/27/21 19:28 The EKG is interpreted at 16: 09 Sinus rhythm, 98 bpm. Normal axis, QTC 444 ms. Poor R wave progression. Borderline high left ventricular voltage. Q waves lead I and aVL. Abnormal EKG. Not a STEMI. No prior for comparison. - Radiology Data Radiology results: pending, report reviewed, image reviewed [facility] [address] [place] [address] Cat Scan Report Signed Patient: JIE JAIN MR#: [id number] : 1990 Acct:[id number] Age/Sex: 30 / F ADM Date: 03/27/21 Loc: ED Attending Dr: Ordering Physician: LONDON CALLEJAS MD Date of Service: 03/27/21 Procedure(s): CT angio chest Accession Number(s): [id number] cc: LONDON CALLEJAS MD CTA CHEST WITH CONTRAST INDICATION / CLINICAL INFORMATION: Acute dyspnea / S.O.B.. TECHNIQUE: Axial CT images were obtained through the chest after injection of 100 cc of Omnipaque 350 IV contrast. 3 plane MIP and/or 3D re constructions were produced. All CT scans at this location are performed using CT dose reduction for ALARA by means of automated exposure control. COMPARISON: None available. FINDINGS: PULMONARY ARTERIES: Evaluation for subsegmental pulmonary emboli is limited due to respiratory motion artifact. No central or segmental pulmonary embolus. THORACIC AORTA: No significant abnormality. HEART: No significant abnormality. ADENOPATHY: No significant adenopathy. LUNGS/PLEURA: Multifocal patchy airspace consolidation throughout bilateral lungs. No pleural effusion. No pneumothorax. ADDITIONAL FINDINGS: None. UPPER ABDOMEN: No acute findings. SKELETAL STRUCTURES: No significant osseous abnormality. IMPRESSION: 1. No evidence for central or segmental pulmonary embolism. 2. Multifocal patchy airspace consolidation, in keeping with reported history of COVID. Signer Name: Devin Landrum MD Signed: 03/27/2021 10:33 PM Workstation Name: [id number] Transcribed By: BRIAN Dictated By: DEVIN LANDRUM MD Electronically Authenticated By: DEVIN LANDRUM MD Signed Date/Time: 03/27/212232 DD/ 29 Critical care attestation.: If time is entered above; I have spent that time in minutes in the direct care of this critically ill patient, excluding procedure time. ED Disposition Clinical Impression: , COVID-19, Chest pain, Shortness of breath, COVID-19 vaccination not done Disposition: 01 HOME / SELF CARE / HOMELESS Is pt being admited?: No Does the pt Need Aspirin: No Condition: Stable Instructions: Nonspecific Chest Pain, Adult Additional Instructions: Drink plenty water. Return for problems. Continue home medication. Follow-up with your regular doctor for recheck and further management. Prescriptions: Albuterol Sulfate [Proair Respiclick] 90 mcg IH 4XD #1 diana Referrals: PRIMARY CARE, [Primary Care Provider] - 3-5 Days Forms: Accompanied Note, Work/School Release Form(ED) Heart Score - HEART Score History: Slightly suspicious EKG: Non-specific Age: < 45 Risk factors: 1-2 risk factors Troponin: < normal limit HEART Score: 2 - EKG Read Time Time EKG Completed: 16:09 EKG Read Time: 16:09 - Critical Actions Critical Actions: 0-3 pts:0.9-1.7%risk of adverse cardiac event.Candidate for discharge
[2021-03-27 16:55] LABS: Basophils % (Auto) 0.3 % (0.0-1.8); Hematocrit 36.8 % (30.3-42.9); Hemoglobin 12.3 gm/dl (10.1-14.3); Lymphocytes # (Auto) 1.2 K/mm3 (1.2-5.4); Lymphocytes % (Auto) 24.1 % (13.4-35.0); Mean Corpuscular HGB Conc 34 % (30-34); Mean Corpuscular Volume 88 fl (79-97); Monocytes # (Auto) 0.5 K/mm3 (0.0-0.8); Monocytes % (Auto) 8.9 % (0.0-7.3); Platelet Count 192 K/mm3 (140-440); Red Blood Count 4.18 M/mm3 (3.65-5.03); Red Cell Distribution Width 13.7 % (13.2-15.2)
[2021-03-27 17:14] LABS: Blood Urea Nitrogen 6 mg/dL (7-17); Calcium 8.6 mg/dL (8.4-10.2); Hemolysis Index 2
[2021-03-27 17:19] LABS: BUN/Creatinine Ratio 12
[2021-03-27 17:21] LABS: Partial Thromboplastin Time 33.5 Sec. (24.2-36.6)
[2021-03-27 17:24] LABS: INR 0.86 (0.87-1.13)
[2021-03-27] MEDS ORDERED: LACTATED RINGERS 1,000 ML IV ONE (18:19)
[2021-03-27] MEDS ORDERED: FAMOTIDINE 20 MG TAB PO ONE (19:23)
[2021-03-27 19:35] VITALS: BP 110/78
--- NOTE | 2021-03-27 22:37 | Cat Scan Report ---
CTA CHEST WITH CONTRAST INDICATION / CLINICAL INFORMATION: Acute dyspnea / S.O.B.. TECHNIQUE: Axial CT images were obtained through the chest after injection of 100 cc of Omnipaque 350 IV contrast. 3 plane MIP and/or 3D reconstructions were produced. All CT scans at this location are performed using CT dose reduction for ALARA by means of automated exposure control. COMPARISON: None available. FINDINGS: PULMONARY ARTERIES: Evaluation for subsegmental pulmonary emboli is limited due to respiratory motion artifact. No central or segmental pulmonary embolus. THORACIC AORTA: No significant abnormality. HEART: No significant abnormality. ADENOPATHY: No significant adenopathy. LUNGS/PLEURA: Multifocal patchy airspace consolidation throughout bilateral lungs. No pleural effusio n. No pneumothorax. ADDITIONAL FINDINGS: None. UPPER ABDOMEN: No acute findings. SKELETAL STRUCTURES: No significant osseous abnormality. IMPRESSION: 1. No evidence for central or segmental pulmonary embolism. 2. Multifocal patchy airspace consolidation, in keeping with reported history of COVID. Signer Name: Richard Sharp MD Signed: 03/27/2021 10:33 PM Workstation Name: [id number]
--- NOTE | 2021-03-27 22:56 | Emergency Department Report ---
Blank Doc - Documentation Documentation: CT was noted and the patient was discharged per there is no evidence of PE. P yessica has findings that are consistent with coronavirus.
--- NOTE | 2021-03-28 11:41 | Electrocardiograph Report ---
[facility] Test Date: 2021-03-27 Test Time: 16:09:32 Pat Name: JIE JAIN Department: Room: Gender: F Director [employer]: : 1990 Requested By: SHRUTHI SULLIVAN Order Number: [id number] Reading MD: Reynaldo Garcia Measurements Intervals [place] Rate: 98 P: 71 ND: 133 QRS: 27 QRSD: 83 T: 15 QT: 346 QTc: 444 Interpretive Statements Sinus rhythm No previous ECG available for comparison Electronically Signed On 03-28-2021 11:40:26 EDT by Reynaldo Garcia
== END 2021-03-27 23:40 | disposition home or self-care (01) ==
LOC: ED 14:45
DX: O98.513 Other viral diseases complicating pregnancy, third trimester (principal); O26.893 Other specified pregnancy related conditions, third trimester; U07.1 COVID-19; Z3A.36 36 weeks gestation of pregnancy; R07.9 Chest pain, unspecified; R06.02 Shortness of breath; Z87.442 Personal history of urinary calculi
CPT/HCPCS: 36415; 59025; 71275; 80048; 81001; 84484; 85025; 85379; 85610; 85730; 87076; 87086; 87186; 93005; 99284; Q9967